=== PATIENT | male | born 1950 | race Caucasian/White ===

== ENCOUNTER 2024-04-14 06:26 | Day surgery (SDC) | payer MEDICARE, OTHER, SELFPAY | END 2024-04-14 15:53 | disposition home or self-care (01) | LOC: GI 06:26 | PROVIDERS: ATTENDING PHYSICIAN Student in an Organized Health Care Education/Training Program | DX: R19.4 Change in bowel habit (principal); K57.30 Diverticulosis of large intestine without perforation or abscess without bleeding; D12.3 Benign neoplasm of transverse colon; D12.1 Benign neoplasm of appendix; D12.2 Benign neoplasm of ascending colon; K63.5 Polyp of colon | CPT/HCPCS: 45385; 45380; 88305 ==

== ENCOUNTER → 2024-05-27 11:31 | Outpatient (REF) | payer MEDICARE, OTHER, SELFPAY | LOC: HWRCS 11:31 | PROVIDERS: ATTENDING PHYSICIAN Nurse Practitioner | DX: R07.89 Other chest pain (principal) | CPT/HCPCS: 78452; 93017; A9500 ==

== ENCOUNTER → 2024-06-03 10:17 | Outpatient (REF) | payer MEDICARE, OTHER, SELFPAY | LOC: HWRCS 10:17 | PROVIDERS: ATTENDING PHYSICIAN Internal Medicine Cardiovascular Disease | DX: R94.39 Abnormal result of other cardiovascular function study (principal) | CPT/HCPCS: 93306 ==

== ENCOUNTER 2024-06-09 06:11 | Day surgery (SDC) | payer MEDICARE, OTHER, SELFPAY ==
[2024-06-09] VITALS (8 sets, daily range): BP systolic 115–150; BP diastolic 51–86; BMI 27.8
[2024-06-09] MEDS: NSS 279 ML IV (07:28)
--- NOTE | 2024-06-09 08:24 | ITS.CL.CATH ---
Costumed Character - Catheterization
Cardiac Catheterization
Procedure Report:
CARDIAC CATHETERIZATION REPORT
Date of Procedure: 06/09/2024
Referring: SEPIDEH Hallman
INDICATION: New chest discomfort with exertion, abnormal stress test.
PROCEDURE:
1. Left heart catheterization.
2. Coronary angiography.
A total of 24 minutes of procedural/moderate sedation was utilized. An independent medical payment poster was present to assist with and help manage the patient's level of consciousness and physiologic status.
ACCESS:
1. 6 [place] right radial artery using a modified Seldinger technique.
CATHETERS:
1. 5 [place] JR4.
2. 5 [place] JL 3.5.
HEMODYNAMIC DATA
Weight (kg): 92.9
AO (s/d/x, mmHg): 122/70/96
LV (s/x mmHg): 122/11
LEFT VENTRICULOGRAPHY: Not performed.
CORONARY ANGIOGRAPHY
Dominance: Right.
Left Main: Large size, bifurcating vessel. There is no coronary artery disease.
LAD: Large size vessel giving rise to 1 significant diagonal. There are minor luminal irregularities.
Ramus: Congenitally absent.
Circumflex: Normal size, nondominant vessel giving rise to 2 obtuse marginals. There is no coronary artery disease.
RCA: Large size, dominant vessel with a large posterolateral arcade supplying the majority of the inferolateral wall. There are minor luminal irregularities.
INTERVENTION(S)
None.
Closure Device: Vascular band.
Radiation (mGy): 419.45
DAP (cm2.Gy): 34.9813
Fluoroscopy time (minutes): 2.2
CONCLUSIONS
1. Right dominant circulation with minor luminal irregularities in the LAD and large dominant RCA.
2. Normal filling pressures (LVEDP = 11 mmHg at 92.9 kg).
3. False positive stress test (inferior defect on exercise SPECT).
RECOMMENDATIONS:
1. Expectant management after cardiac catheterization via right radial approach.
2. Limited weight bearing on the right wrist for one week.
3. Continue evaluation for likely noncardiac chest pain.
4. Continue current preventative measures including simvastatin and aspirin.
Copy to: Ti Patel D.O., Ti Londono M.D.
Ti Patel DO, FACC, FACP
[2024-06-09] MEDS: NSS 1000 IV (08:53)
== END 2024-06-09 11:00 | disposition home or self-care (01) ==
LOC: CATH 06:11
PROVIDERS: ATTENDING PHYSICIAN Internal Medicine Cardiovascular Disease; FAMILY PHYSICIAN Physician Assistant Medical
DX: R07.89 Other chest pain (principal); R94.39 Abnormal result of other cardiovascular function study; E78.00 Pure hypercholesterolemia, unspecified; Z87.891 Personal history of nicotine dependence; Z82.3 Family history of stroke; Z79.82 Long term (current) use of aspirin
CPT/HCPCS: 99152; 99153; C1894; 93458; Q9967

== ENCOUNTER → 2024-06-26 10:53 | Outpatient (REF) | payer MEDICARE, OTHER, SELFPAY | LOC: RCS 10:53 | PROVIDERS: ATTENDING PHYSICIAN Nurse Practitioner Gerontology; REFERRING PHYSICIAN Internal Medicine Cardiovascular Disease | DX: R00.1 Bradycardia, unspecified (principal) | CPT/HCPCS: 93225; 93226 ==